=== PATIENT | female | born 2005 | race Two or more races ===

== ENCOUNTER 2024-05-15 13:05 | Emergency (ER) | payer MEDICAID, OTHER ==
[~2024-05-15] VITALS: Ht 152.4 cm; Wt 65.9 kg
[2024-05-15 13:44] LABS: Basophils # (auto) 0 10 ^3/uL (0-0.2); Basophils % (auto) 0.6 % (0.0-2.0); Eosinophils # (auto) 0.1 10 ^3/uL (0-0.8); Eosinophils % (auto) 1.3 % (0.0-7.0); Hematocrit 45.1 % (36.0-46.0); Hemoglobin 15.1 g/dL (12.2-16.2); Lymphocytes % (auto) 26.3 % (10.0-50.0); Mean Corpuscular Hemoglobin 28.9 pg (28.0-32.0); Mean Corpuscular Hgb Conc. 33.5 g/dL (32.0-36.0); Mean Corpuscular Volume 86.4 fL (80.0-100.0); Monocytes # (auto) 0.7 10 ^3/uL (0-1.3); Monocytes % (auto) 9.5 % (0.0-12.0); Neutrophils # (auto) 4.7 10 ^3/uL (1.6-8.6); Neutrophils % (auto) 62.3 % (37.0-80.0); Nucleated Red Blood Cells % 0.2 %; Platelet Count (auto) 283 10^3/uL (140-450); Red Blood Cells 5.22 10^6/uL (4.0-5.20); Red Cell Distribution Width 14.1 % (11.8-14.3); White Blood Cell 7.5 10^3/uL (4.4-10.8)
[2024-05-15 14:22] LABS: Anion Gap 9 (5-15); Carbon Dioxide 25 mmol/L (20-30); Chloride 106 mmol/L (98-107); Potassium 3.4 mmol/L (3.5-5.1); Sodium 140 mmol/L (136-145)
[2024-05-15 14:24] LABS: Calcium 10.2 mg/dL (8.7-10.4)
[2024-05-15 14:28] LABS: BUN/Creatinine Ratio 13.7 (10.0-20.0); Blood Urea Nitrogen 10 mg/dL (9-23); Glucose 99 mg/dL (74-106)
[2024-05-15 15:03] LABS: Urine Bacteria FEW /hpf (None Seen); Urine Blood TRACE /uL (Negative); Urine Clarity Clear (Clear); Urine Color Yellow (Yellow); Urine Mucus MODERATE (None Seen); Urine Protein, UAD 1+ (Negative); Urine Specific Gravity 1.034 (1.001-1.035); Urine Urobilinogen 2 mg/dL (Negative); Urine WBC 1 /hpf (0 - 5); Urine pH 6.5 (5.0-9.0)
[2024-05-15] MEDS: ONDANSETRON HCL 4 MG/2 ML VIAL IV ONE ×2 (15:35→18:14)
[2024-05-15] MEDS: POTASSIUM EFFERVESENT TAB 25 MEQ PO ONE (15:35)
[2024-05-15] MEDS: SODIUM CHLORIDE 0.9% 1,000 ML IV ONE (15:35)
[2024-05-15 16:10] VITALS: BP 119/76; TEMP 99
[2024-05-15 16:14] VITALS: PULSE 80; RESP 18; O2SAT 98
== END 2024-05-15 19:00 | disposition home or self-care (01) ==
LOC: ER 13:05
DX: K52.9 Noninfective gastroenteritis and colitis, unspecified (principal); R10.2 Pelvic and perineal pain; R42 Dizziness and giddiness; R51.9 Headache, unspecified
CPT/HCPCS: 36415; 80048; 81001; 84702; 85025; 96361; 96374; 96375; 99284; J2405; J7030

== ENCOUNTER 2025-01-29 01:50 | Emergency (ER) | payer MEDICAID ==
[~2025-01-29] VITALS: Ht 152.4 cm; Wt 61.5 kg
[2025-01-29] MEDS ORDERED: ACET500T58 PO (03:23)
[2025-01-29] MEDS ORDERED: AMOX875T4 PO (03:23)
--- NOTE | 2025-01-29 03:23 | ED.PDOC ---
History of Present Illness(SKN HPI Comments 19-year-old female presents to ER with complaints of dog bite to right hand x 20 minutes. Patient reports that her milanie dog who is fully up-to-date on vaccines bit her on her right hand 20 minutes prior to arrival to ER and sustained a 1 cm puncture wound to right hand at that time. States she is uns ure when her last tetanus shot was. She rates her current pain an 8/10 to right hand without radiation. Denies use of medications for current symptoms. Patient presents to ER ambulatory on arrival, with steady gait, in no distress. Denies numbness/tingling, foreign body sensation, wrist pain or any further symptoms/complaints Chief Complaint: Animal Bite Time Seen by MD: 02:06 Primary Care Provider: UNKNOWN History of Present Illness: Nurses Notes, Medications, Allergies Allergies: Coded Allergies: NO KNOWN ALLERGIES (Unverified , 05/15/24) Information Source: Patient Mode of Arrival: Ambulatory Tetanus: Unknown Past Medical History PAST MEDICAL HISTORY: Denies Surgical History: Denies all surgeries REFRIGERATOR ROOM CLERK History: No Pertinent REFRIGERATOR ROOM CLERK History Family History Family History: Unknown Social History Smoker: Non-Smoker Alcohol: Denies ETOH Use Drugs: Denies Drug Use Lives In: Home Constitutional: denies: chills, diaphoresis, fatigue, fever, malaise, sweats, weakness, others EENTM: denies: blurred vision, double vision, ear bleeding, ear discharge, ear drainage, ear pain, ear ringing, eye pain, eye redness, hearing loss, mouth pain, mouth swelling, nasal discharge, nose bleeding, nose congestion, nose pain, photophobia, tearing, throat pain, throat swelling, voice changes, others Respiratory: denies: cough, hemoptysis, orthopnea, SOB at rest, shortness of breath, SOB with excertion, stridor, wheezing, others Cardiovascular: denies: chest pain, dizzy spells, diaphoresis, Dyspnea on exertion, edema, irregular heart beat, left arm pain, lightheadedness, palpitations, PND, syncope, others Gastrointestinal: denies: abdomen distended, abdominal pain, blood streaked bowels, constipated, diarrhea, dysphagia, difficulty swallowing, hematemesis, melena, nausea, poor appetite, poor fluid intake, rectal bleeding, rectal pain, vomiting, others Genitourinary: denies: abnormal vagina bleeding, burning, dyspareunia, dysuria, flank pain, frequency, hematuria, incontinence, pain, , vagina discharge, urgency, others Neurological: denies: dizziness, fainting, headache, left sided numbness, left sided weakness, numbness, paresthesia, pre-existing deficit, right sided numbness, right sided weakness, seizure, speech problems, tingling, tremors, weakness, others Musculoskeletal: reports: others ( STATED IN HPI) Integumetry: reports: others ( STATED IN HPI) Allergic/Immunocompromised: denies: Difficulty Healing, Frequent Infections, Hives, Itching, others Hematologic/Lymphatic: denies: anemia, blood clots, easy bleeding, easy bruising, swollen glands, others Endocrine: denies: excessive hunger, excessive sweating, excessive thirst, excessive urination, flushing, intolerance to cold, intolerance to heat, unexplained weight gain, unexplained weight loss, others Psychiatric: denies: anxiety, bipolar disorder, depression, hopeless, panic disorder, schizophrenia, sleepless, suicidal, others Physical Exam General Appearance: No Apparent Distress HEENT: PERRL/EOMI Neck: Full Range of Motion, Non-Tender, Normal Respiratory: Chest Non-Tender, Lungs Clear, No Accessory Muscle Use, No Respiratory Distress, Normal Breath Sounds Cardiovascular: No Murmur, No Gallop, Regular Rate/Rhythm Breast Exam: Deferred Gastrointestinal: NOT DONE Genitalia: Deferred Pelvic: Deferred Rectal: Deferred Extremities: Normal capillary refill, Normal range of motion Musculoskeletal : Extremity Location: Hand (1 CM PUNCTURE WOUND NOTED TO REGION OF RIGHT 2ND METACARPAL. SLIGHT TTP/SWELLNG/ERYTHEMA LOCALIZED TO WOUND EDGES. NO FB/FURTHER SKIN CHANGES NOTED. PATIENT ABLE TO FULLY MOVE ALL FINGERS OF RIGHT HAND. PULSES INTACT) Neurologic: Alert, No Motor Deficits, Normal Affect, Normal Mood, No Sensory Deficits Cerebellar Function: Normal Reflexes: Normal Skin: Dry, Warm Peripheral Pulses: 2+ Radial (R), 2+ Radial (L), 2+ Brachial (R), 2+ Brachial (L) Lymphatic: No Adenopathy Was a procedure done? Was a procedure done?: No Sedation Sedation?: No Differential Diagnosis (INTG) Differential Diagnosis: Abrasion Differential Diagnosis: Abscess Differential Diagnosis: Laceration, Retained Foreign Body X-Ray, Labs, Meds, VS Vital Signs Date Time Temp Pulse Resp B/P (MAP) Pulse Ox O2 Delivery O2 Flow Rate FiO2 01/29/25 01:59 98.2 98 18 151/82 (105) 100 98.2 RIGHT HAND X-RAY REVIEWED ROCEPHIN 1 G IM ORDERED TDAP 0.5 ML IM ORDERED WOUND CLEANING PERFORMED AT BEDSIDE WOUND CARE/CLEANING DISCUSSED AND ADVISED ADVISED TO FOLLOW UP WITH PCP IN 1-2 DAYS PATIENT VERBALIZED UNDERSTANDING AND AGREEABLE WITH CURRENT PLAN OF CARE ADVISED TO RETURN TO ER IMMEDIATELY IF SYMPTOMS WORSEN Images Reviewed?: Images reviewed and evaluated by me Time of 1ST Reevaluation: 02:54 Reevaluation 1ST: N/A Patient Education/Counseling: Diagnosis, Treatment, Prognosis, Need For Follow Up Family Education/Counseling: No Family Present Departure 1 Departure Time of Disposition: 03:12 Impression: Primary Impression: Dog bite of right hand Qualified Codes: S61.451A - Open bite of right hand, initial encounter; W54.0XXA - Bitten by dog, initial encounter Disposition: 01 HOME / SELF CARE / HOMELESS Condition: Stable e-Prescriptions Amoxicillin & Pot Clavulanate (Amoxicillin/Potassium Cla) 875 Mg Tab 1 TAB PO BID for 7 Days, #14 TAB 0 Refills Prov: PORTER KING 01/29/25 Acetaminophen (Acetaminophen) 500 Mg Tab 500 MG PO Q4HPRN, #30 TAB 0 Refills Prov: PORTER KING 01/29/25 Discharged With: Self Critical Care Note Critical Care Time?: No Stability Stability form required: No Heart Score Heart Score: Heart Score Response (Comments) Value History N/A 0 EKG N/A 0 Age N/A 0 Risk Factors N/A 0 Troponin N/A 0 Total 0 PORTER KING January 29, 2025 03:23
[2025-01-29 03:30] VITALS: BP 151/82; PULSE 98; RESP 18; TEMP 98.2; O2SAT 100
[2025-01-29] MEDS: TETANUS-DIPTH-ACEL PERTUSSIS 0.5ML SYR Tdap IM ONE (03:50)
[2025-01-29] MEDS: cefTRIAXone SOD 1,000 MG VL IM ONE (03:51)
--- NOTE | 2025-01-30 05:33 | DVH ---
CLINICAL INDICATION: RIGHT HAND PAIN TECHNIQUE: XY R HAND 3 VIEW XRAY Comparison: None FINDINGS/IMPRESSION: : There is no evidence of acute fracture or dislocation. Soft tissues are unremarkable.
== END 2025-01-29 04:48 | disposition home or self-care (01) ==
LOC: ER 01:50
DX: S61.451A Open bite of right hand, initial encounter (principal); W54.0XXA Bitten by dog, initial encounter; Y93.89 Activity, other specified; Y99.8 Other external cause status; Y92.89 Other specified places as the place of occurrence of the external cause
CPT/HCPCS: 73130; 90471; 90715; 96372; 99284; J0696